=== PATIENT | male | born 1965 | race African-American/Black ===

== ENCOUNTER 2019-08-23 10:12 | Inpatient (IN) | payer SELFPAY ==
[2019-08-23] VITALS (14 sets, daily range): BP systolic 86–153; BP diastolic 37–77
[~2019-08-23] VITALS: Ht 177.8 cm; Wt 83.0 kg
[2019-08-23] MEDS ORDERED: SODIUM CHLORIDE 0.9% 1000ML BAG (SEPSIS BOLUS) IV ONE (11:00)
[2019-08-23] MEDS ORDERED: VANCOMYCIN 1 G PREMIX 200 ML IV SCH (11:00)
[2019-08-23] MEDS ORDERED: PIPERACILLIN/TAZ 3.375G PREMIX 50 ML IV ONE (11:00)
[2019-08-23 11:16] LABS: BASOPHILS % 0.2 % (0.0-2.0); EOSINOPHILS % 0.9 % (0.0-5.0); HEMATOCRIT. 29.8 % (42.0-52.0); LYMPHOCYTES % 27.3 % (20.0-50.0); MEAN CORPUSCULAR HEMOGLOBIN 23.6 pg (28.0-32.0); MEAN CORPUSCULAR VOLUME 70.2 fL (80.0-94.0); MEAN PLATELET VOLUME 8.2 fl (7.4-10.4); MONOCYTES % 7.3 % (2.0-8.0); NEUTROPHILS % 64.3 % (40.0-76.0); PLATELET 271 x1000/uL (130-400); RED BLOOD CELL COUNT 4.25 mill/uL (4.7-6.1)
[2019-08-23 11:24] LABS: CHLORIDE 111 mEq/L (98-107)
[2019-08-23 11:26] LABS: PARTIAL THROMBOPLASTIN TIME 29.6 sec (23.4-31.0)
[2019-08-23 11:52] LABS: ETHANOL BLOOD 447 mg/dL
[2019-08-23] MEDS ORDERED: POTASSIUM CHLORIDE 20MEQ TABLET SR PO ONE (12:00)
[2019-08-23 12:11] LABS: CLARITY URINE CLEAR (CLEAR); COLOR URINE YELLOW (YELLOW); KETONES URINE NEGATIVE (NEGATIVE); LEUKOCYTE ESTERASE URINE NEGATIVE (NEGATIVE); NITRITE URINE NEGATIVE (NEGATIVE); OCCULT BLOOD URINE NEGATIVE (NEGATIVE); PROTEIN URINE NEGATIVE (NEGATIVE); SPECIFIC GRAVITY URINE 1.015 (1.005-1.030); UROBILINOGEN URINE 0.2 E.U./dL (0.2-1.0)
[2019-08-23 12:34] LABS: *BARBITURATES SCREEN URINE NEGATIVE (NEGATIVE)
[2019-08-23 12:35] LABS: *AMPHETAMINES SCREEN URINE NEGATIVE (NEGATIVE); *BENZODIAZEPINES SCREEN URINE NEGATIVE (NEGATIVE); *COCAINE SCREEN URINE NEGATIVE (NEGATIVE); METHADONE URINE SCREEN NEGATIVE (NEGATIVE); OPIATES URINE SCREEN NEGATIVE (NEGATIVE); PHENCYCLIDINE URINE SCREEN NEGATIVE (NEGATIVE)
[2019-08-23 12:36] LABS: CANNABINOID URINE SCREEN NEGATIVE (NEGATIVE)
[2019-08-23] MEDS ORDERED: KCL 20MEQ/100ML PREMIX 100 ML IV ONE (12:45)
[2019-08-23] MEDS ORDERED: ACETAMINOPHEN 650MG SUPP PR PRN (13:30)
[2019-08-23] MEDS ORDERED: ONDANSETRON HCL 4MG/2ML INJ IV PRN (13:30)
[2019-08-23] MEDS ORDERED: LORAZEPAM 2MG/ML CPJ IV PRN (13:30)
[2019-08-23 13:36] LABS: BG BASE EXCESS -9.6 mmol/L (-2.0-2.0); BG CARBOXYHEMOGLOBIN 1.1 % (0.5-1.5); BG DEOXYHEMOGLOBIN 0.8 % (0.0-5.0); BG FRACTION INSPIRED OXYGEN 100; BG HCO3 ACT 21.5 mmol/L (22.0-26.0); BG METHEMOGLOBIN 0.5 % (0.0-1.5); BG OXYGEN SATURATION 99.2 % (92.0-98.5); BG OXYHEMOGLOBIN 97.6 % (94.0-97.0); BG PCO2 79.4 mmHg (35.0-45.0); BG PH 7.051 (7.350-7.450); BG PO2 364.5 mmHg (75.0-100.0); BG SAMPLE SITE RIGHT RADIAL; BG TOTAL HEMOGLOBIN 10.6 g/dL (12.0-18.0); BG VENT MODE MASK - NRB
[2019-08-23] MEDS ORDERED: LIDOCAINE HCL 1% 20ML VIAL (Pyxis) INJ ONE (13:58)
[2019-08-23] MEDS ORDERED: SODIUM BICARBONATE 4% (2.4MEQ) 5ML VIAL IV ONE (13:58)
[2019-08-23] MEDS ORDERED: ETOMIDATE 2MG/ML 10ML VIAL IV ONE ×2 (14:00→14:15)
[2019-08-23] MEDS ORDERED: NOREPINEPHRINE 4 MG in DEXT 5% WATER 246 ML IV ONE (14:00)
[2019-08-23] MEDS ORDERED: SUCCINYLCHOLINE CHLORIDE 200MG/10ML IV ONE ×2 (14:00→14:15)
[2019-08-23] MEDS ORDERED: PROPOFOL 10MG/ML 100ML 100 ML IV SCH (14:00)
[2019-08-23] MEDS ORDERED: NOREPINEPHRINE 4 MG in DEXT 5% WATER 246 ML IV SCH (14:30)
[2019-08-23] MEDS ORDERED: NOREPINEPHRINE 4 MG in DEXT 5% WATER 246 ML IV PRN (14:30)
[2019-08-23] MEDS ORDERED: IPRATROPIUM/ALBUTEROL 0.5-3(2.5)MG/3ML NEB HHN PRN (14:30)
[2019-08-23] MEDS ORDERED: FENTANYL CITRATE/PF 500 MCG in SODIUM CHLORIDE 0.9% 40 ML IV PRN (14:30)
[2019-08-23] MEDS ORDERED: NOREPINEPHRINE 4MG/250ML PMX 250 ML IV ONE (15:00)
[2019-08-23] MEDS ORDERED: NOREPINEPHRINE 4MG/250ML PMX 250 ML IV NR (16:00)
[2019-08-23] MEDS ORDERED: MVI, ADULT NO.1 10 ML, FOLIC ACID 1 MG, THIAMINE HCL 100 MG in SODIUM CHLORIDE 0.9% 1,0... IV ONE ×4 (18:00)
[2019-08-23] MEDS ORDERED: LEVOFLOXACIN 500MG PREMIX 100 ML IV SCH (18:30)
[2019-08-23 18:31] LABS: BG BASE EXCESS -7.2 mmol/L (-2.0-2.0); BG CARBOXYHEMOGLOBIN 0.2 % (0.5-1.5); BG DEOXYHEMOGLOBIN 2.5 % (0.0-5.0); BG FRACTION INSPIRED OXYGEN 50; BG HCO3 ACT 19.1 mmol/L (22.0-26.0); BG METHEMOGLOBIN 0.5 % (0.0-1.5); BG OXYGEN SATURATION 97.5 % (92.0-98.5); BG OXYHEMOGLOBIN 96.8 % (94.0-97.0); BG PCO2 41.3 mmHg (35.0-45.0); BG PH 7.282 (7.350-7.450); BG PO2 139.3 mmHg (75.0-100.0); BG SAMPLE SITE LEFT RADIAL; BG TIDAL VOLUME(mL) 500 mL; BG TOTAL HEMOGLOBIN 9.9 g/dL (12.0-18.0); BG VENT MODE VENT - A/C; BG VENT RATE 16 set
[2019-08-23] MEDS: FAMOTIDINE 20MG/2ML VIAL IV SCH (19:03)
[2019-08-23] MEDS: ENOXAPARIN 40MG/0.4ML SYR SUBCUT SCH (19:04)
[2019-08-23] MEDS ORDERED: SODIUM BICARBONATE 8.4% 1 MEQ/ML 50ML SYR IV NR (19:30)
[2019-08-23] MEDS: IPRATROPIUM/ALBUTEROL 0.5-3(2.5)MG/3ML NEB HHN SCH (20:26)
[2019-08-23] MEDS: PROPOFOL 10MG/ML 100ML 100 ML IV PRN (22:52)
[2019-08-24] VITALS (77 sets, daily range): BP systolic 102–222; BP diastolic 52–102
[2019-08-24] MEDS: IPRATROPIUM/ALBUTEROL 0.5-3(2.5)MG/3ML NEB HHN SCH ×6 (00:21→20:25)
[2019-08-24] MEDS: DEXT 5%/0.45% NACL KCL 10MEQ/L 1,000 ML IV SCH ×3 (03:08→21:57)
[2019-08-24] MEDS: PROPOFOL 10MG/ML 100ML 100 ML IV PRN ×4 (03:09→20:55)
[2019-08-24 05:58] LABS: BASOPHILS % 0.1 % (0.0-2.0); EOSINOPHILS % 0.5 % (0.0-5.0); HEMATOCRIT. 24.8 % (42.0-52.0); HEMOGLOBIN. 8.2 g/dL (14.0-18.0); LYMPHOCYTES % 20.8 % (20.0-50.0); MEAN CORPUSCULAR HEMOGLOBIN 23.3 pg (28.0-32.0); MEAN CORPUSCULAR VOLUME 70.2 fL (80.0-94.0); MEAN PLATELET VOLUME 8.4 fl (7.4-10.4); MONOCYTES % 5.1 % (2.0-8.0); NEUTROPHILS % 73.5 % (40.0-76.0); PLATELET 203 x1000/uL (130-400); RED BLOOD CELL COUNT 3.53 mill/uL (4.7-6.1); RED CELL DISTRIBUTION WIDTH 15.3 % (11.6-14.6)
[2019-08-24 06:12] LABS: CHLORIDE 118 mEq/L (98-107)
[2019-08-24 07:22] LABS: BG BASE EXCESS -5.8 mmol/L (-2.0-2.0); BG CARBOXYHEMOGLOBIN 0.3 % (0.5-1.5); BG HCO3 ACT 18.4 mmol/L (22.0-26.0); BG METHEMOGLOBIN 0.4 % (0.0-1.5); BG OXYHEMOGLOBIN 97.3 % (94.0-97.0); BG PCO2 31.1 mmHg (35.0-45.0); BG PH 7.391 (7.350-7.450); BG PO2 134.8 mmHg (75.0-100.0); BG SAMPLE SITE LEFT RADIAL; BG TIDAL VOLUME(mL) 500 mL; BG TOTAL HEMOGLOBIN 8.4 g/dL (12.0-18.0); BG VENT MODE VENT - A/C; BG VENT RATE 18 set
[2019-08-24] MEDS: FOLIC ACID/VITAMIN B COMP W-C TABLET PO SCH (09:48)
[2019-08-24] MEDS: MULTIVITAMINS,THER W-MINERALS TABLET PO SCH (09:48)
[2019-08-24] MEDS: FAMOTIDINE 20MG/2ML VIAL IV SCH (09:49)
[2019-08-24] MEDS: THIAMINE HCL 100MG TABLET PO SCH (09:55)
[2019-08-24] MEDS ORDERED: LIDOCAINE HCL/PF 1% 2ML VIAL ONE (10:34)
[2019-08-24] MEDS ORDERED: POTASSIUM CHLORIDE INJ 40 MEQ in DEXT 5% WATER 250 ML IV NR (11:30)
[2019-08-24] MEDS: LEVOFLOXACIN 500MG PREMIX 100 ML IV SCH (13:36)
[2019-08-24] MEDS: LOSARTAN POTASSIUM 50 MG TABLET PO SCH (18:22)
[2019-08-24] MEDS: ENOXAPARIN 40MG/0.4ML SYR SUBCUT SCH (18:23)
[2019-08-24] MEDS: AMLODIPINE 10MG TABLET PO SCH (18:23)
[2019-08-24] MEDS: HYDRALAZINE 20MG/ML VIAL IV PRN (18:24)
[2019-08-24] MEDS ORDERED: PROPOFOL 10MG/ML 100ML 100 ML IV PRN (21:00)
[2019-08-24] MEDS: FENTANYL CITRATE/PF 500 MCG in SODIUM CHLORIDE 0.9% 40 ML IV PRN (21:57)
[2019-08-25] VITALS (48 sets, daily range): BP systolic 142–196; BP diastolic 58–104
[2019-08-25] MEDS: IPRATROPIUM/ALBUTEROL 0.5-3(2.5)MG/3ML NEB HHN SCH ×5 (00:09→16:00)
[2019-08-25] MEDS: HYDRALAZINE 20MG/ML VIAL IV PRN ×2 (00:11→09:27)
[2019-08-25] MEDS: PROPOFOL 10MG/ML 100ML 100 ML IV PRN ×2 (04:53→09:12)
[2019-08-25] MEDS: FENTANYL CITRATE/PF 500 MCG in SODIUM CHLORIDE 0.9% 40 ML IV PRN (04:53)
[2019-08-25 06:36] LABS: CHLORIDE 114 mEq/L (98-107)
[2019-08-25 06:44] LABS: HEMATOCRIT. 25.4 % (42.0-52.0); HEMOGLOBIN. 8.5 g/dL (14.0-18.0); MEAN CORPUSCULAR HEMOGLOBIN 23.5 pg (28.0-32.0); MEAN CORPUSCULAR VOLUME 69.6 fL (80.0-94.0); PLATELET 173 x1000/uL (130-400); RED BLOOD CELL COUNT 3.64 mill/uL (4.7-6.1); RED CELL DISTRIBUTION WIDTH 14.9 % (11.6-14.6)
[2019-08-25 08:36] LABS: PLATELET ESTIMATE NORMAL
[2019-08-25 09:04] LABS: PHOSPHORUS 2.6 mg/dL (2.5-4.9)
[2019-08-25] MEDS: MULTIVITAMINS,THER W-MINERALS TABLET PO SCH (09:08)
[2019-08-25] MEDS: FAMOTIDINE 20MG/2ML VIAL IV SCH (09:08)
[2019-08-25] MEDS: LOSARTAN POTASSIUM 50 MG TABLET PO SCH (09:08)
[2019-08-25] MEDS: THIAMINE HCL 100MG TABLET PO SCH (09:08)
[2019-08-25] MEDS: AMLODIPINE 10MG TABLET PO SCH (09:09)
[2019-08-25] MEDS: FOLIC ACID/VITAMIN B COMP W-C TABLET PO SCH (09:09)
[2019-08-25] MEDS: DEXT 5%/0.45% NACL KCL 10MEQ/L 1,000 ML IV SCH (09:09)
[2019-08-25 09:17] LABS: BG CARBOXYHEMOGLOBIN 0.2 % (0.5-1.5); BG DEOXYHEMOGLOBIN 2.3 % (0.0-5.0); BG FRACTION INSPIRED OXYGEN 30; BG HCO3 ACT 22.6 mmol/L (22.0-26.0); BG METHEMOGLOBIN 0.3 % (0.0-1.5); BG OXYGEN SATURATION 97.7 % (92.0-98.5); BG OXYHEMOGLOBIN 97.2 % (94.0-97.0); BG PCO2 29.2 mmHg (35.0-45.0); BG PH 7.507 (7.350-7.450); BG PO2 120.1 mmHg (75.0-100.0); BG SAMPLE SITE LEFT RADIAL; BG TIDAL VOLUME(mL) 500 mL; BG VENT MODE VENT - A/C; BG VENT RATE 18 set
[2019-08-25] MEDS ORDERED: MAGNESIUM 1 G PREMIX 100 ML IV NR (10:00)
[2019-08-25] MEDS ORDERED: POTASSIUM PHOS,M-BASIC-D-BASIC 30 MMOL in DEXT 5% WATER 500 ML IV NR (11:00)
[2019-08-25 13:21] LABS: BG BASE EXCESS -0.9 mmol/L (-2.0-2.0); BG CARBOXYHEMOGLOBIN 0.3 % (0.5-1.5); BG DEOXYHEMOGLOBIN 2.3 % (0.0-5.0); BG FRACTION INSPIRED OXYGEN 30; BG METHEMOGLOBIN 0.1 % (0.0-1.5); BG OXYGEN SATURATION 97.7 % (92.0-98.5); BG OXYHEMOGLOBIN 97.3 % (94.0-97.0); BG PH 7.436 (7.350-7.450); BG PO2 111.8 mmHg (75.0-100.0); BG PRESSURE SUPPORT 8; BG SAMPLE SITE LEFT RADIAL; BG TOTAL HEMOGLOBIN 9.9 g/dL (12.0-18.0); BG VENT MODE VENT - CPAP
[2019-08-25] MEDS: LEVOFLOXACIN 500MG PREMIX 100 ML IV SCH (14:39)
[2019-08-25] MEDS ORDERED: LOSARTAN POTASSIUM 50 MG TABLET PO SCH (21:00)
== END 2019-08-25 17:20 | disposition left against medical advice (07) | DRG 816 ==
LOC: ER 10:12 → CVICU 12:46 → EDBEDREQSVC 12:49 → EDBEDREQ 12:49 → EDBEDREQTM 12:49 → ENRESERV 13:11
PROVIDERS: ADMIT Hospitalist; ATTEND Hospitalist
PROC: 0BH17EZ Insertion of Endotracheal Airway into Trachea, Via Natural or Artificial Opening (ICD-10-PCS; principal; 2019-08-23)
PROC: 5A1945Z Respiratory Ventilation, 24-96 Consecutive Hours (ICD-10-PCS; 2019-08-23)
PROC: 02HV33Z Insertion of Infusion Device into Superior Vena Cava, Percutaneous Approach (ICD-10-PCS; 2019-08-23)
PROC: B548ZZA Ultrasonography of Superior Vena Cava, Guidance (ICD-10-PCS; 2019-08-23)
DX: T51.0X1A Toxic effect of ethanol, accidental (unintentional), initial encounter (principal); R65.21 Severe sepsis with septic shock; J96.01 Acute respiratory failure with hypoxia; J96.02 Acute respiratory failure with hypercapnia; A41.9 Sepsis, unspecified organism; G92 Toxic encephalopathy; J44.1 Chronic obstructive pulmonary disease with (acute) exacerbation; G31.2 Degeneration of nervous system due to alcohol; D64.9 Anemia, unspecified; E87.6 Hypokalemia; F10.229 Alcohol dependence with intoxication, unspecified; L03.113 Cellulitis of right upper limb; E83.51 Hypocalcemia; Y90.8 Blood alcohol level of 240 mg/100 ml or more; Y92.89 Other specified places as the place of occurrence of the external cause
CPT/HCPCS: 31500; 36415; 36600; 71045; 76937; 80305; 80320; 81003; 82140; 82375; 82805; 83605; 83735; 84100; 84134; 84145; 84478; 84484; 87070; 92610; 93005; 93970; 94002; 94640; 96361; 96365; 96367; 96368; 99291; C1725; J0330; J0360; J1650; J1956; J2060; J2543; J2704; J3010; J3370; J3411; J3475; J3480; J3490; J7030; J7040; J7060; J7620; G0480